=== PATIENT | male | born 1985 | race African-American/Black ===

== ENCOUNTER 2017-12-10 07:43 | Outpatient (CLI) | payer OTHER ==
[2017-12-10] MEDS ORDERED: GADOBUTROL 7.5 MMOL/7.5 ML VIAL ONE (08:32)
[2017-12-10] MEDS ORDERED: GADOBUTROL 7.5 MMOL/7.5 ML VIAL IVP ONE (08:48)
--- NOTE | 2017-12-10 16:16 | MRI Report ---
Procedure Date: 12/10/2017 Accession Number: [id number] / [id number] Procedure: MRI - Lumbar Spine W/WO CPT Code: FULL RESULT: EXAM: MRI LUMBAR SPINE WITHOUT AND WITH CONTRAST EXAM DATE: 12/10/2017 08:05 AM. CLINICAL HISTORY: LOW BACK PAIN. COMPARISONS: None. TECHNIQUE: Multiplanar, multisequence T1-weighted and fluid-sensitive sequences of the lumbar spine from T12 to S1 before and after administration of intravenous contrast. Other: None. IV contrast: 7.5 cc Gadavist. FINDINGS: Spinal Canal: The conus terminates at L1. The conus medullaris and cauda equina are unremarkable. Alignment: Straightening of the normal lumbar lordosis. There is 3 mm of grade I retrolisthesis of L5 on S1. Bone Marrow: Five [id number] lumbar vertebral bodies are assumed. 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 No acute fracture. No definite mass or masslike enhancement seen within the vertebral bodies. No marrow replacing lesion. Disk Levels/Facets: T12-L1: Congenitally short pedicles. Mild spinal canal stenosis. No neural foraminal narrowing. L1-L2: Congenitally short pedicles. Mild spinal canal stenosis. No neural foraminal narrowing. L2-L3: Congenitally short pedicles. Prominent epidural fat. Bilateral facet disease. Mild spinal canal stenosis. Minimal bilateral foramina narrowing. L3-L4: Congenitally short pedicles. Bilateral facet disease, prominent epidural fat. Mild spinal canal stenosis. Mild bilateral foraminal narrowing. L4-L5: Congenitally short pedicles. Bilateral facet disease and prominent epidural fat. Mild spinal canal stenosis. Mild bilateral neural foramina narrowing. L5-S1: Mild endplate degenerative change with mild loss of disk height and disk desiccation. Small central to right paracentral disk protrusion. Bilateral facet disease. Effacement of the right lateral recess with mass effect on the traversing right S1 nerve root. Minimal bilateral neural foraminal narrowing. Spinal Canal: No enhancing masses within the spinal canal. No epidural abscess. Musculature: Normal. No edema, abnormal enhancement, or fatty atrophy. Other: The visualized retroperitoneum is unremarkable. IMPRESSION: 1. No evidence of diskitis/osteomyelitis. No epidural abscess or fat none. 2. No intraspinal mass or abnormal intraspinal enhancement. 3. Straightening of the normal lumbar lordosis. There is 3 mm of grade 1 retrolisthesis of L5 on S1. 4. 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 5. At L5-S1 there appears to be a small central to right paracentral disk protrusion. 6. Minimal multilevel degenerative changes. T12-L1: Mild spinal canal stenosis. No neural foraminal narrowing. L1-L2: Mild spinal canal stenosis. No neural foraminal narrowing. L2-L3: Mild spinal canal stenosis. Minimal bilateral foramina narrowing. L3-L4: Mild spinal canal stenosis. Mild bilateral foraminal narrowing. L4-L5: Mild spinal canal stenosis. Mild bilateral neural foramina narrowing. L5-S1: Effacement of the right lateral recess with mass effect on the traversing right S1 nerve root. Minimal bilateral neural foraminal narrowing. Comment: The following findings are so common in adults without low back pain that while we report their presence, they must be interpreted with caution and in the context of the clinical situation. (Reference Rejik et al, Spine 2001) Prevalence of findings in patients without low back pain: Disk degeneration (any evidence): 92% Disk desiccation/T2 signal loss: 83% Disk height loss: 56% Disk bulge: 64% Disk protrusion: 32% Annular tear/high intensity zone: 38% RADIA
== END 2017-12-10 07:44 | disposition home or self-care (01) ==
LOC: DI 07:43
PROVIDERS: ATTEND Student in an Organized Health Care Education/Training Program
DX: M51.26 Other intervertebral disc displacement, lumbar region (principal); M51.36 Other intervertebral disc degeneration, lumbar region; M48.061 Spinal stenosis, lumbar region without neurogenic claudication
CPT/HCPCS: 72158; A9585